=== PATIENT | female | born 1950 | race Caucasian/White ===

== ENCOUNTER → 2016-10-23 | Outpatient (CLI) | payer MEDICARE ==
[~2016-10-23] MED LIST: CRESTOR10 MG PO; LANTUS SOL100 UNIT/1 SQ; NEXIUM10 MG PO; NOVOLOG MI100 UNIT/1 SQ; SINGULAIR10 MG PO; SYNTHROID25 MCG PO; ZYRTEC10 M3 PO
[2016-10-23 11:59] LABS: BUN/CREATININE RATIO 27 (0-10)
== END ==
LOC: RAD 10:05
PROVIDERS: Legal Medicine
DX: S82.831A Other fracture of upper and lower end of right fibula, initial encounter for closed fracture (principal); E11.65 Type 2 diabetes mellitus with hyperglycemia
CPT/HCPCS: 36415; 73564; 80053; 80061; 82043; 83036

== ENCOUNTER → 2020-10-11 | Outpatient (CLI) | payer OTHER ==
[~2020-10-11] MED LIST changes: +CALCIUM500 M1 PO; +IBUPROFEN800 MG PO; +IRON160 MG PO; -LANTUS SOL100 UNIT/1 SQ; +METFORMIN ER G500 MG PO; -NEXIUM10 MG PO; +NEXIUM40 M1 PO; +PRINIVIL20 MG PO; +TOPROL XL25 MG PO; +TRESIBA100 UNIT/1 SQ; +ULTRAM50 MG PO; +VICTOZA 3-0.6 MG/0.1 SQ; +VITAMIN D35000 UNI1 PO
== END ==
LOC: MAMO 07:13
DX: Z12.31 Encounter for screening mammogram for malignant neoplasm of breast (principal)
CPT/HCPCS: 77063; 77067

== ENCOUNTER → 2021-01-28 | Outpatient (CLI) | payer OTHER | LOC: KOH-I 11:13 | DX: M25.562 Pain in left knee (principal); G89.29 Other chronic pain | CPT/HCPCS: 73562 ==

== ENCOUNTER → 2021-02-14 | Outpatient (CLI) | payer OTHER | LOC: KOH-I 09:04 | DX: M25.562 Pain in left knee (principal); M89.9 Disorder of bone, unspecified; R93.6 Abnormal findings on diagnostic imaging of limbs | CPT/HCPCS: 73721 ==

== ENCOUNTER → 2021-08-08 | Outpatient (CLI) | payer OTHER ==
[2021-08-08 12:43] LABS: HEMOGLOBIN 12.2 gm/dl (12.3-15.3); RED BLOOD COUNT 4.58 M/UL (4.00-5.10); WHITE BLOOD COUNT 8.6 K/UL (4.5-11.0)
[2021-08-10 02:08] LABS: A/G RATIO 1.7 (1.2-2.2); ALKALINE PHOSPHATASE, S 81 IU/L (44-121); ALT (SGPT) 16 IU/L (0-32); AST (SGOT) 12 IU/L (0-40); BILIRUBIN, TOTAL 0.5 mg/dL (0.0-1.2); BUN 15 mg/dL (8-27); BUN/CREATININE RATIO 15 (12-28); CALCIUM, SERUM 9.8 mg/dL (8.7-10.3); CARBON DIOXIDE, TOTAL 20 mmol/L (20-29); CHLORIDE, SERUM 106 mmol/L (96-106); CHOLESTEROL, TOTAL 152 mg/dL (100-199); CREATININE, SERUM 1.01 mg/dL (0.57-1.00); EGFR IF AFRICN AM 65 (>59); EGFR IF NONAFRICN AM 56 (>59); GLOBULIN, TOTAL 2.6 g/dL (1.5-4.5); GLUCOSE, SERUM 105 mg/dL (65-99); HDL CHOLESTEROL 39 mg/dL (>39); LDL CHOLESTEROL CALC 73 mg/dL (0-99); LDL/HDL RATIO 1.9 ratio (0.0-3.2); SODIUM, SERUM 144 mmol/L (134-144); T. CHOL/HDL RATIO 3.9 ratio (0.0-4.4); TRIGLYCERIDES 246 mg/dL (0-149)
== END ==
LOC: LAB 12:13
PROVIDERS: Internal Medicine Cardiovascular Disease
DX: I10 Essential (primary) hypertension (principal)
CPT/HCPCS: 36415; 80053; 80061; 85025

== ENCOUNTER 2021-08-13 23:52 | Emergency (ER) | payer OTHER ==
[2021-08-14 00:30] LABS: HEMOGLOBIN 11.9 gm/dl (12.3-15.3); RED BLOOD COUNT 4.4 M/UL (4.00-5.10); WHITE BLOOD COUNT 9.4 K/UL (4.5-11.0)
[2021-08-14 00:55] LABS: BUN/CREATININE RATIO 21 (0-10)
== END 2021-08-14 04:26 | disposition home or self-care (01) ==
LOC: ER1 23:52
PROVIDERS: Physician Assistant
DX: R07.89 Other chest pain (principal); I10 Essential (primary) hypertension; E78.5 Hyperlipidemia, unspecified; Z79.4 Long term (current) use of insulin
CPT/HCPCS: 71045; 80053; 81001; 82550; 82553; 83874; 83880; 84484; 85025; 85610; 85730; 87086; 93005; 99285

== ENCOUNTER → 2021-11-11 | Outpatient (CLI) | payer MEDICARE | LOC: EXRD 10-03 08:00 → MAMO 10-03 08:00 → EXRD 10-29 15:00 | DX: Z12.31 Encounter for screening mammogram for malignant neoplasm of breast (principal); M85.88 Other specified disorders of bone density and structure, other site | CPT/HCPCS: 77063; 77067; 77080 ==